=== PATIENT | female | born 1945 | race Caucasian/White ===

== ENCOUNTER 2017-06-14 17:30 | Inpatient (IN) | payer MEDICARE, MEDICAID ==
[2017-06-14] MEDS: SOD CHLORIDE 0.9% 1,000 ML IV (18:13)
[2017-06-14] MEDS: morphine 4 MG/ML VIAL IV (18:14)
[2017-06-14] MEDS: ONDANSETRON 4 MG INJ IV (18:14)
[2017-06-14 18:44] LABS: ADD MAN DIFF? NO
[2017-06-14 18:48] LABS: BASOPHILS % 0.4 % (0.0-2.0); EOSINOPHILS # 0.3 10^3/ul (0.0-0.5); EOSINOPHILS % 3.4 % (0.0-7.0); HEMATOCRIT 31.4 % (37.0-47.0); HEMOGLOBIN 10.3 g/dl (12.0-16.0); LYMPHOCYTES # 2.5 10^3/ul (0.8-2.9); MEAN CORPUSCULAR HEMOGLOBIN 29.3 pg (29.0-33.0); MEAN CORPUSCULAR HGB CONC 32.8 g/dl (32.0-37.0); MEAN CORPUSCULAR VOLUME 89.2 fl (82.0-101.0); MEAN PLATELET VOLUME 9.4 fl (7.4-10.4); MONOCYTE # 1.1 10^3/ul (0.3-0.9); MONOCYTES % 12.6 % (0.0-11.0); NEUTROPHIL # 4.9 10^3/ul (1.6-7.5); NEUTROPHILS % 55.3 % (39.0-77.0); PLATELET COUNT 423 10^3/UL (140-415); RED BLOOD COUNT 3.52 10^6/ul (4.20-5.40); RED CELL DISTRIBUTION WIDTH 15.7 % (11.5-14.5)
[2017-06-14 19:07] LABS: ANION GAP 14 (8-16); BLOOD UREA NITROGEN 14 mg/dl (7-20); CALCIUM 8.3 mg/dl (8.4-10.2); CARBON DIOXIDE 25 mmol/L (21-31); CHLORIDE 105 mmol/L (97-110); CREATININE 0.61 mg/dl (0.44-1.00); GLUCOSE 102 mg/dl (70-220); POTASSIUM 4.1 mmol/L (3.5-5.1); SODIUM 140 mmol/L (135-144)
[2017-06-14] MEDS: LORAZEPAM 2 MG INJ IV (19:08)
[2017-06-14] MEDS: HALOPERIDOL 5 MG INJ IM (19:09)
[2017-06-14 19:16] LABS: INR 0.92; PROTIME 12.4 Sec (11.9-14.9)
[2017-06-14 19:17] LABS: PARTIAL THROMBOPLASTIN TIME 27.6 Sec (25.0-35.0)
[2017-06-14 19:19] LABS: TROPONIN-I < 0.012 ng/ml (0.00-0.12)
[2017-06-14 21:31] LABS: ADD UMIC YES; UR ASCORBIC ACID NEGATIVE (NEGATIVE); UR BACTERIA FEW /HPF (NONE SEEN); UR BILIRUBIN (Dip) NEGATIVE (NEGATIVE); UR BLOOD (Dip) 1+ mg/dL (NEGATIVE); UR CLARITY SLIGHTLY CLOUDY (CLEAR); UR COLOR YELLOW (YELLOW); UR GLUCOSE (Dip) NEGATIVE (NEGATIVE); UR KETONES (Dip) NEGATIVE (NEGATIVE); UR LEUKOCYTE ESTERASE (Dip) 3+ Leu/ul (NEGATIVE); UR NITRITE (Dip) POSITIVE (NEGATIVE); UR RBC 1 /HPF (0-5); UR SPECIFIC GRAVITY (Dip) 1.006 (1.003-1.030); UR TOTAL PROTEIN (Dip) NEGATIVE (NEGATIVE); UR UROBILINOGEN (Dip) NEGATIVE (NEGATIVE); UR WBC 26 /HPF (0-5)
[2017-06-14] MEDS: CEFEPIME 1GM/50 ML (PMX) 50 ML IVPB (23:16)
[2017-06-15] MEDS ORDERED: ONDANSETRON 4 MG INJ IV (06:30)
[2017-06-15] MEDS: DEXTROSE 5%-0.45% NACL 1,000 ML IV ×2 (08:13→19:34)
[2017-06-15] MEDS ORDERED: DEXTROSE 50% 50 ML SYRINGE IV ×2 (08:30)
[2017-06-15] MEDS ORDERED: GLUCOSE GEL 15 GRAM TUBE PO ×2 (08:30)
[2017-06-15] MEDS ORDERED: GLUCOSE GEL 15 GRAM TUBE BUCCAL (08:30)
[2017-06-15] MEDS ORDERED: GLUCAGON 1 MG INJ IM (08:30)
[2017-06-15] MEDS: INSULIN ASPART [NOVOLOG] 3 ML PEN SC ×4 (09:47→23:29)
[2017-06-15] MEDS: CIPROFLOXACIN 400MG/D5W 200 ML IVPB ×2 (09:54→20:51)
[2017-06-15 15:12] LABS: ADD MAN DIFF? NO
[2017-06-15 15:14] LABS: WHITE BLOOD COUNT 8.5 10^3/ul (4.8-10.8)
[2017-06-15 15:14] LABS: BASOPHILS % 0.4 % (0.0-2.0); EOSINOPHILS # 0.2 10^3/ul (0.0-0.5); EOSINOPHILS % 2.7 % (0.0-7.0); HEMATOCRIT 30.9 % (37.0-47.0); LYMPHOCYTES % 22.9 % (15.0-51.0); MEAN CORPUSCULAR HEMOGLOBIN 29.1 pg (29.0-33.0); MEAN CORPUSCULAR HGB CONC 32.4 g/dl (32.0-37.0); MEAN CORPUSCULAR VOLUME 89.8 fl (82.0-101.0); MEAN PLATELET VOLUME 9.2 fl (7.4-10.4); MONOCYTE # 0.9 10^3/ul (0.3-0.9); NEUTROPHIL # 5.4 10^3/ul (1.6-7.5); NEUTROPHILS % 63.8 % (39.0-77.0); PLATELET COUNT 372 10^3/UL (140-415); RED BLOOD COUNT 3.44 10^6/ul (4.20-5.40); RED CELL DISTRIBUTION WIDTH 15.5 % (11.5-14.5)
[2017-06-15 15:36] LABS: ANION GAP 12 (8-16); BLOOD UREA NITROGEN 10 mg/dl (7-20); CALCIUM 8.4 mg/dl (8.4-10.2); CARBON DIOXIDE 26 mmol/L (21-31); CHLORIDE 106 mmol/L (97-110); CREATININE 0.56 mg/dl (0.44-1.00); GLUCOSE 129 mg/dl (70-220); POTASSIUM 4.2 mmol/L (3.5-5.1); SODIUM 140 mmol/L (135-144)
[2017-06-15 16:17] LABS: HEMOGLOBIN A1C 5.6 % (0-5.9)
[2017-06-15] MEDS ORDERED: ALBUTEROL 0.083% (NEB) 2.5 MG/3 ML AMP NEB (19:30)
[2017-06-15] MEDS: CHLORHEXIDINE GLUCONATE 15 ML UD CUP MM (20:06)
[2017-06-15] MEDS: DOCUSATE SODIUM 10 MG/ML (10ML CUP) GTB (20:06)
[2017-06-15] MEDS: MAGNESIUM HYDROXIDE 30ML CUP GTB (20:06)
[2017-06-15] MEDS: LANSOPRAZOLE 30 MG CAP GTB (20:06)
[2017-06-15] MEDS: FERROUS SULFATE 60 MG/ML 5ML CUP PO (20:06)
[2017-06-15] MEDS: ATORVASTATIN 40 MG TAB GTB (20:06)
[2017-06-15] MEDS: NYSTATIN 30 GM POWDER BTL TOP (20:07)
[2017-06-15] MEDS: BISACODYL 10 MG SUPP PR (20:07)
[2017-06-15] MEDS ORDERED: NON-FORMULARY/PATIENT OWN MED (Cran/Vitc/Mannose/Inulin/Brom (Uti-Stat Liquid) 30 ML) GTB (21:00)
[2017-06-15] MEDS: ALBUTEROL 0.083% (NEB) 2.5 MG/3 ML AMP NEB (21:32)
[2017-06-15] MEDS: LEVETIRACETAM (100 MG/ML) 5ML CUP GTB (22:55)
[2017-06-15] MEDS: ACETAMINOPHEN 650MG/20.3ML CUP GTB (23:30)
[2017-06-16] MEDS: ALBUTEROL 0.083% (NEB) 2.5 MG/3 ML AMP NEB ×4 (02:00→20:25)
[2017-06-16 05:39] LABS: ADD MAN DIFF? NO
[2017-06-16 05:42] LABS: BASOPHILS % 0.6 % (0.0-2.0); EOSINOPHILS # 0.4 10^3/ul (0.0-0.5); EOSINOPHILS % 5.4 % (0.0-7.0); HEMATOCRIT 30.3 % (37.0-47.0); HEMOGLOBIN 9.6 g/dl (12.0-16.0); LYMPHOCYTES # 1.9 10^3/ul (0.8-2.9); LYMPHOCYTES % 26.9 % (15.0-51.0); MEAN CORPUSCULAR HGB CONC 31.7 g/dl (32.0-37.0); MEAN CORPUSCULAR VOLUME 91.5 fl (82.0-101.0); MEAN PLATELET VOLUME 9.4 fl (7.4-10.4); MONOCYTE # 0.9 10^3/ul (0.3-0.9); MONOCYTES % 13.1 % (0.0-11.0); NEUTROPHIL # 3.8 10^3/ul (1.6-7.5); NEUTROPHILS % 53.9 % (39.0-77.0); PLATELET COUNT 359 10^3/UL (140-415); RED BLOOD COUNT 3.31 10^6/ul (4.20-5.40)
[2017-06-16 05:42] LABS: WHITE BLOOD COUNT 7.1 10^3/ul (4.8-10.8)
[2017-06-16] MEDS: LANSOPRAZOLE 30 MG CAP GTB ×2 (05:50→18:24)
[2017-06-16 05:55] LABS: HEMOGLOBIN A1C 5.6 % (0-5.9)
[2017-06-16] MEDS: INSULIN ASPART [NOVOLOG] 3 ML PEN SC ×3 (06:00→18:00)
[2017-06-16 06:07] LABS: MAGNESIUM 1.7 mg/dl (1.7-2.5)
[2017-06-16 06:15] LABS: ANION GAP 12 (8-16); BLOOD UREA NITROGEN 10 mg/dl (7-20); CALCIUM 8.2 mg/dl (8.4-10.2); CARBON DIOXIDE 26 mmol/L (21-31); CHLORIDE 102 mmol/L (97-110); CREATININE 0.55 mg/dl (0.44-1.00); GLUCOSE 152 mg/dl (70-220); POTASSIUM 4.4 mmol/L (3.5-5.1); SODIUM 136 mmol/L (135-144)
[2017-06-16] MEDS: DEXTROSE 5%-0.45% NACL 1,000 ML IV ×3 (06:33→20:14)
[2017-06-16 08:12] LABS: ALANINE AMINOTRANSFERASE 21 IU/L (13-69); ALKALINE PHOSPHATASE 196 IU/L (42-121); ASPARTATE AMINO TRANSFERASE 23 IU/L (15-46); TOTAL PROTEIN 6.4 g/dl (6.1-8.1)
[2017-06-16] MEDS: MAGNESIUM HYDROXIDE 30ML CUP GTB (09:58)
[2017-06-16] MEDS: NYSTATIN 30 GM POWDER BTL TOP ×2 (09:59→20:51)
[2017-06-16] MEDS: FERROUS SULFATE 60 MG/ML 5ML CUP PO ×3 (09:59→20:51)
[2017-06-16] MEDS: L ACIDOPHIL/B LACTIS/B LONGUM CAPSULE PO (09:59)
[2017-06-16] MEDS: CHLORHEXIDINE GLUCONATE 15 ML UD CUP MM ×2 (09:59→20:51)
[2017-06-16] MEDS: LEVETIRACETAM (100 MG/ML) 5ML CUP GTB ×2 (09:59→20:51)
[2017-06-16] MEDS: ASPIRIN 81 MG TAB GTB (09:59)
[2017-06-16] MEDS: MULTIVITAMINS/MINERALS TAB GTB (09:59)
[2017-06-16] MEDS: CIPROFLOXACIN 400MG/D5W 200 ML IVPB ×2 (10:49→20:53)
[2017-06-16] MEDS: BISACODYL 10 MG SUPP PR (20:16)
[2017-06-16] MEDS: DOCUSATE SODIUM 10 MG/ML (10ML CUP) GTB (20:51)
[2017-06-16] MEDS: ATORVASTATIN 40 MG TAB GTB (20:51)
[2017-06-16] MEDS: ACETAMINOPHEN 650MG/20.3ML CUP GTB (20:51)
[2017-06-17] MEDS: ACCUCHECK AT 2AM (Patients on SS coverage) XX (02:00)
[2017-06-17] MEDS: ALBUTEROL 0.083% (NEB) 2.5 MG/3 ML AMP NEB ×4 (02:15→20:14)
[2017-06-17] MEDS: LANSOPRAZOLE 30 MG CAP GTB ×2 (06:10→18:13)
[2017-06-17] MEDS: Insulin NOVOLOG SS MILD Algorithm (SS with meals and bedtime) SC ×4 (07:20→20:25)
[2017-06-17] MEDS ORDERED: INSULIN ASPART [NOVOLOG] 3 ML PEN SC (07:20)
[2017-06-17] MEDS: LEVETIRACETAM (100 MG/ML) 5ML CUP GTB ×2 (08:54→20:24)
[2017-06-17] MEDS: FERROUS SULFATE 60 MG/ML 5ML CUP PO ×3 (08:55→20:24)
[2017-06-17] MEDS: CHLORHEXIDINE GLUCONATE 15 ML UD CUP MM ×2 (08:55→20:24)
[2017-06-17] MEDS: MULTIVITAMINS/MINERALS TAB GTB (08:55)
[2017-06-17] MEDS: ASPIRIN 81 MG TAB GTB (08:55)
[2017-06-17] MEDS: L ACIDOPHIL/B LACTIS/B LONGUM CAPSULE PO (08:55)
[2017-06-17] MEDS: MAGNESIUM HYDROXIDE 30ML CUP GTB (08:55)
[2017-06-17] MEDS: DEXTROSE 5%-0.45% NACL 1,000 ML IV (08:58)
[2017-06-17] MEDS: NYSTATIN 30 GM POWDER BTL TOP ×2 (09:02→20:26)
[2017-06-17] MEDS: CIPROFLOXACIN 400MG/D5W 200 ML IVPB (09:03)
[2017-06-17] MEDS: morphine 2 MG INJ IV ×3 (10:13→22:11)
[2017-06-17] MEDS ORDERED: SOD CHLORIDE 0.9% 250 ML IV (16:00)
[2017-06-17] MEDS: SOD CHLORIDE 0.9% 1,000 ML IV ×2 (16:05→18:06)
[2017-06-17] MEDS: HALOPERIDOL 5 MG INJ IM (16:29)
[2017-06-17] MEDS: ATORVASTATIN 40 MG TAB GTB (20:24)
[2017-06-17] MEDS: DOCUSATE SODIUM 10 MG/ML (10ML CUP) GTB (20:24)
[2017-06-17] MEDS: BISACODYL 10 MG SUPP PR (20:24)
[2017-06-17] MEDS: HEPARIN 5,000 UNIT/0.5 ML VIAL SC (20:27)
[2017-06-18] MEDS: ALBUTEROL 0.083% (NEB) 2.5 MG/3 ML AMP NEB ×3 (01:35→14:03)
[2017-06-18] MEDS: ACCUCHECK AT 2AM (Patients on SS coverage) XX (02:00)
[2017-06-18] MEDS: LANSOPRAZOLE 30 MG CAP GTB (05:14)
[2017-06-18] MEDS: morphine 2 MG INJ IV (05:14)
[2017-06-18] MEDS: SOD CHLORIDE 0.9% 1,000 ML IV ×2 (05:14→10:02)
[2017-06-18] MEDS: CIPROFLOXACIN 250 MG TAB GTB ×2 (05:14→17:20)
[2017-06-18] MEDS: Insulin NOVOLOG SS MILD Algorithm (SS with meals and bedtime) SC ×3 (08:50→17:25)
[2017-06-18] MEDS: CHLORHEXIDINE GLUCONATE 15 ML UD CUP MM (08:56)
[2017-06-18] MEDS: L ACIDOPHIL/B LACTIS/B LONGUM CAPSULE PO (08:56)
[2017-06-18] MEDS: FERROUS SULFATE 60 MG/ML 5ML CUP PO ×2 (08:56→13:22)
[2017-06-18] MEDS: MAGNESIUM HYDROXIDE 30ML CUP GTB (08:56)
[2017-06-18] MEDS: LEVETIRACETAM (100 MG/ML) 5ML CUP GTB (08:56)
[2017-06-18] MEDS: MULTIVITAMINS/MINERALS TAB GTB (08:56)
[2017-06-18] MEDS: ASPIRIN 81 MG TAB GTB (08:56)
[2017-06-18] MEDS: HEPARIN 5,000 UNIT/0.5 ML VIAL SC (08:58)
[2017-06-18] MEDS: NYSTATIN 30 GM POWDER BTL TOP (08:59)
[2017-06-18] MEDS: HALOPERIDOL 5 MG INJ IM (10:03)
== END 2017-06-18 18:25 | DRG 542 ==
LOC: MS1 06-15 → E/R 17:30 → MS1 06-15 11:45
PROC: 5A1945Z Respiratory Ventilation, 24-96 Consecutive Hours (ICD-10-PCS; principal; 2017-06-15)
DX: M84.452A Pathological fracture, left femur, initial encounter for fracture (principal); G93.49 Other encephalopathy; J96.10 Chronic respiratory failure, unspecified whether with hypoxia or hypercapnia; N39.0 Urinary tract infection, site not specified; G40.909 Epilepsy, unspecified, not intractable, without status epilepticus; Z93.0 Tracheostomy status; E78.00 Pure hypercholesterolemia, unspecified; E11.22 Type 2 diabetes mellitus with diabetic chronic kidney disease; I12.9 Hypertensive chronic kidney disease with stage 1 through stage 4 chronic kidney disease, or unspecified chronic kidney disease; F03.90 Unspecified dementia, unspecified severity, without behavioral disturbance, psychotic disturbance, mood disturbance, and anxiety; Z93.1 Gastrostomy status; D64.9 Anemia, unspecified; R13.10 Dysphagia, unspecified; N18.9 Chronic kidney disease, unspecified; Z79.82 Long term (current) use of aspirin; Z87.11 Personal history of peptic ulcer disease; Z88.0 Allergy status to penicillin
CPT/HCPCS: 36415; 71045; 72170; 73550; 73562; 80048; 80076; 81001; 82962; 83036; 83735; 84484; 85025; 85610; 85730; 87086; 93005; 94640; 94664; 96372; 96374; 96375; 99285-25

== ENCOUNTER 2017-07-21 19:46 | Inpatient (IN) | payer MEDICARE, OTHER, MEDICAID ==
[~2017-07-21 19:46] MED LIST: AMIODARONE 150 MG INJ; CA CHLORIDE 10% 10 ML SYRINGE; EPINEPHrine 0.1 MG/ML SYG; MAGNESIUM SULFATE 1 GM/100 ML D5W IVPB; NA BICARBONATE 8.4% 50 ML SYG
[2017-07-21] MEDS ORDERED: NORepinephrine 8MG/250 ML (PMX 250 ML (20:16)
[2017-07-21] MEDS: AMIODARONE 900 MG in DEXTROSE 5% 482 ML IV (20:20)
[2017-07-21] MEDS: NORepinephrine 8MG/250 ML (PMX 250 ML IV (20:25)
[2017-07-21] MEDS: SODIUM CHLORIDE 0.9% 1L BAG IV* (20:25)
[2017-07-21 21:10] LABS: AADO2 Arterial 423.3 mmHg (7.0-24.0); Allen Test ACCEPTAB; Arterial Base Excess -8.8 mmol/L (-3.0-3); Arterial Blood Gas Oxygen Sat 99.6 mmHG (95.0-98.0); Arterial COHb 0.8 % (0.0-3.0); Arterial Fraction of Oxyhgb 98.6 % (93.0-99.0); Arterial HCO3 18.5 mmol/L (22.0-26.0); Arterial MetHb 0.2 % (0.0-1.5); Arterial Total Hemglobin 13.8 g/dl (12.0-18.0); MODE VENT - AC; Site Right Radial
[2017-07-21 21:11] LABS: WHITE BLOOD COUNT 19.2 10^3/ul (4.8-10.8)
[2017-07-21 21:11] LABS: ABNORMAL IP MESSAGE 1; HEMATOCRIT 39.1 % (37.0-47.0); HEMOGLOBIN 11.8 g/dl (12.0-16.0); MEAN CORPUSCULAR HEMOGLOBIN 28.8 pg (29.0-33.0); MEAN CORPUSCULAR HGB CONC 30.2 g/dl (32.0-37.0); MEAN CORPUSCULAR VOLUME 95.4 fl (82.0-101.0); MEAN PLATELET VOLUME 10.3 fl (7.4-10.4); NUCLEATED RED BLOOD CELLS% 0.2 /100WBC (0.0-0.0); PLATELET COUNT 258 10^3/UL (140-415); RED CELL DISTRIBUTION WIDTH 15.9 % (11.5-14.5)
[2017-07-21 21:16] LABS: POSITIVE DIFF @See below
[2017-07-21] MEDS: SODIUM CHLORIDE 0.9% 500 ML BAG IV* (21:16)
[2017-07-21 21:17] LABS: ADD MAN DIFF? YES
[2017-07-21] MEDS: CEFEPIME 1GM/50 ML (PMX) 50 ML IVPB (21:27)
[2017-07-21 21:36] LABS: ALANINE AMINOTRANSFERASE 282 IU/L (13-69); ALBUMIN 2.5 g/dl (3.3-4.9); ALKALINE PHOSPHATASE 221 IU/L (42-121); ANION GAP 15 (8-16); ASPARTATE AMINO TRANSFERASE 404 IU/L (15-46); BLOOD UREA NITROGEN 21 mg/dl (7-20); CALCIUM 9.2 mg/dl (8.4-10.2); CARBON DIOXIDE 25 mmol/L (21-31); CHLORIDE 106 mmol/L (97-110); CREATININE 0.98 mg/dl (0.44-1.00); GLUCOSE 208 mg/dl (70-220); MAGNESIUM 2.5 mg/dl (1.7-2.5); PHOSPHORUS 7.6 mg/dl (2.5-4.9); POTASSIUM 4.4 mmol/L (3.5-5.1); SODIUM 142 mmol/L (135-144); TOTAL PROTEIN 5.6 g/dl (6.1-8.1)
[2017-07-21] MEDS ORDERED: LEVETIRACETAM (100 MG/ML) 5ML CUP GTB (22:00)
[2017-07-21] MEDS ORDERED: ACETAMINOPHEN 325 MG TAB PO (22:00)
[2017-07-21] MEDS ORDERED: ONDANSETRON 4 MG INJ IV ×2 (22:00)
[2017-07-21] MEDS ORDERED: ACETAMINOPHEN 325 MG TAB GTB (22:00)
[2017-07-21] MEDS: CHLORHEXIDINE GLUCONATE 15 ML UD CUP MM (22:00)
[2017-07-21] MEDS: LANSOPRAZOLE 30 MG CAP GTB (22:00)
[2017-07-21] MEDS ORDERED: ALBUTEROL 0.083% (NEB) 2.5 MG/3 ML AMP NEB (22:00)
[2017-07-21] MEDS: MAGNESIUM HYDROXIDE 30ML CUP GTB (22:00)
[2017-07-21] MEDS ORDERED: FENTAnyl (DRIP) 1000 mcg/100mL 100 ML IV (22:00)
[2017-07-21 22:05] LABS: BAND NEUTROPHILS #M 0.1 10^3/ul (0.0-0.6); BAND NEUTROPHILS % (M) 1 % (0-4); BASOPHIL #M 0.1 10^3/ul (0.0-0.0); BASOPHILS % (M) 1 % (0-2); EOSINOPHILS % (M) 1 % (0-7); GIANT THROMBO% (M) 1 % (0-0); LYMPHOCYTES #M 2.4 10^3/ul (0.8-2.9); LYMPHOCYTES % (M) 13 % (15-51); MONOCYTE #M 0.5 10^3/ul (0.3-0.9); MONOCYTES % (M) 3 % (0-11); MYELOCYTES #M 0.3 10^3/ul (0.0-0.0); MYELOCYTES % (M) 2 % (0-0); PLATELET ESTIMATE NORMAL; POIKILOCYTOSIS 1+ (0-0); POLYCHROMASIA 2+ (0-0); SEG NEUT #M 15.2 10^3/ul (1.6-7.5); SEGMENTED NEUTROPHILS (M) % 79 % (39-77); TROPONIN-I 0.165 ng/ml (0.00-0.12)
[2017-07-21 22:07] LABS: LACTIC ACID 9.2 mmol/L (0.5-2.0)
[2017-07-21] MEDS: VANCOMYCIN 1 GM (PMX) 250 ML IVPB (22:19)
[2017-07-21 22:23] LABS: CREATINE KINASE 80 IU/L (23-200); LIPASE 42 U/L (23-300)
[2017-07-21 22:23] LABS: AMYLASE 60 U/L (11-123)
[2017-07-21] MEDS ORDERED: VANCOMYCIN IV PER PHARMACY XX (22:30)
[2017-07-21 22:33] LABS: CK-MB 2.36 ng/ml (0.0-2.4)
[2017-07-21 22:41] LABS: ADD UMIC YES; UR AMORPHOUS CRYSTAL FEW /HPF (NONE SEEN); UR ASCORBIC ACID 40 mg/dL (NEGATIVE); UR BACTERIA MODERATE /HPF (NONE SEEN); UR BILIRUBIN (Dip) NEGATIVE (NEGATIVE); UR BLOOD (Dip) 1+ mg/dL (NEGATIVE); UR CLARITY TURBID (CLEAR); UR COLOR YELLOW (YELLOW); UR GLUCOSE (Dip) NEGATIVE (NEGATIVE); UR KETONES (Dip) NEGATIVE (NEGATIVE); UR LEUKOCYTE ESTERASE (Dip) 1+ Leu/ul (NEGATIVE); UR NITRITE (Dip) NEGATIVE (NEGATIVE); UR RBC 46 /HPF (0-5); UR SPECIFIC GRAVITY (Dip) 1.012 (1.003-1.030); UR SQUAMOUS EPITHELIAL CELL FEW /HPF (FEW); UR TOTAL PROTEIN (Dip) 2+ mg/dl (NEGATIVE); UR UROBILINOGEN (Dip) NEGATIVE (NEGATIVE); UR WBC > 182 /HPF (0-5)
[2017-07-21] MEDS: MIDAZOLAM (DRIP) 50 mg/50 mL 50 ML IV (23:10)
[2017-07-21] MEDS: VECURONIUM 100 MG in DEXTROSE 5% 100 ML IV (23:17)
[2017-07-21 23:26] LABS: INR 1.41; PROTIME 17.5 Sec (11.9-14.9); PT RATIO 1.4
[2017-07-21 23:27] LABS: PARTIAL THROMBOPLASTIN TIME 51.3 Sec (25.0-35.0)
[2017-07-22 00:01] LABS: D-DIMER < 220.00 ng/ml (<460)
[2017-07-22 01:05] LABS: LACTIC ACID 7.6 mmol/L (0.5-2.0)
[2017-07-22 01:55] LABS: ADD MAN DIFF? NO
[2017-07-22 01:58] LABS: ABNORMAL IP MESSAGE 1; BASOPHIL # 0.2 10^3/ul (0.0-0.1); BASOPHILS % 0.4 % (0.0-2.0); HEMOGLOBIN 15.3 g/dl (12.0-16.0); LYMPHOCYTES # 1.9 10^3/ul (0.8-2.9); LYMPHOCYTES % 4.2 % (15.0-51.0); MEAN CORPUSCULAR HEMOGLOBIN 28.9 pg (29.0-33.0); MEAN CORPUSCULAR VOLUME 96.4 fl (82.0-101.0); MEAN PLATELET VOLUME 9.7 fl (7.4-10.4); MONOCYTE # 1.5 10^3/ul (0.3-0.9); MONOCYTES % 3.3 % (0.0-11.0); NEUTROPHIL # 40.6 10^3/ul (1.6-7.5); NEUTROPHILS % 91.2 % (39.0-77.0); PLATELET COUNT 256 10^3/UL (140-415); RED BLOOD COUNT 5.29 10^6/ul (4.20-5.40)
[2017-07-22 01:58] LABS: WHITE BLOOD COUNT 44.5 10^3/ul (4.8-10.8)
[2017-07-22] MEDS: SOD CHLORIDE 0.9% 1,000 ML IV (01:59)
[2017-07-22] MEDS ORDERED: DEXTROSE 50% 50 ML SYRINGE IV ×2 (02:00)
[2017-07-22 02:06] LABS: POSITIVE DIFF @See below
[2017-07-22] MEDS: ACCU-CHEK XX ×23 (02:15→23:58)
[2017-07-22 02:18] LABS: PARTIAL THROMBOPLASTIN TIME 42.1 Sec (25.0-35.0)
[2017-07-22 02:24] LABS: AADO2 Arterial 258.5 mmHg (7.0-24.0); Arterial Base Excess -14.8 mmol/L (-3.0-3); Arterial Blood Gas Oxygen Sat 87.6 mmHG (95.0-98.0); Arterial COHb 1.4 % (0.0-3.0); Arterial Fraction of Oxyhgb 86.4 % (93.0-99.0); Arterial HCO3 14.7 mmol/L (22.0-26.0); Arterial MetHb 0 % (0.0-1.5); Arterial Total Hemglobin 16.2 g/dl (12.0-18.0); Arterial pCO2 42.8 mmhg (35-45); MODE VENT - AC; Site Right Brachial; Temperature 34.5 C
[2017-07-22 02:26] LABS: CREATINE KINASE 255 IU/L (23-200)
[2017-07-22 02:28] LABS: AMYLASE 113 U/L (11-123); ANION GAP 19 (8-16); BLOOD UREA NITROGEN 26 mg/dl (7-20); CALCIUM 8.5 mg/dl (8.4-10.2); CARBON DIOXIDE 20 mmol/L (21-31); CHLORIDE 109 mmol/L (97-110); CREATININE 1.13 mg/dl (0.44-1.00); GLUCOSE 169 mg/dl (70-220); LIPASE 76 U/L (23-300); MAGNESIUM 2.3 mg/dl (1.7-2.5); PHOSPHORUS 7.2 mg/dl (2.5-4.9); POTASSIUM 4.1 mmol/L (3.5-5.1); SODIUM 144 mmol/L (135-144)
[2017-07-22] MEDS ORDERED: NA BICARBONATE 8.4% 50 ML SYG (02:39)
[2017-07-22] MEDS: NA BICARBONATE 8.4% 50 ML SYG IV ×2 (02:53→09:04)
[2017-07-22 03:00] LABS: TROPONIN-I 0.984 ng/ml (0.00-0.12)
[2017-07-22] MEDS: INSULIN HUMAN REGULAR 100 UNIT in SOD CHLORIDE 0.9% 99 ML IV (03:19)
[2017-07-22 05:10] LABS: LACTIC ACID 8.2 mmol/L (0.5-2.0)
[2017-07-22] MEDS: PANTOPRAZOLE 40 MG INJ IV ×2 (05:42→18:19)
[2017-07-22] MEDS: ARTIFICIAL TEARS 15 ML OPH BOTH EYES ×5 (06:37→23:58)
[2017-07-22] MEDS: OCULAR LUBRICANT 3.5 GM OPH OINT BOTH EYES ×5 (06:37→23:58)
[2017-07-22 07:55] LABS: HEMATOCRIT 52.7 % (37.0-47.0); HEMOGLOBIN 15.7 g/dl (12.0-16.0); MEAN CORPUSCULAR HEMOGLOBIN 28.6 pg (29.0-33.0); MEAN CORPUSCULAR HGB CONC 29.8 g/dl (32.0-37.0); MEAN PLATELET VOLUME 10.4 fl (7.4-10.4); PLATELET COUNT 223 10^3/UL (140-415); RED BLOOD COUNT 5.49 10^6/ul (4.20-5.40); RED CELL DISTRIBUTION WIDTH 16.5 % (11.5-14.5)
[2017-07-22 07:55] LABS: WHITE BLOOD COUNT 42.5 10^3/ul (4.8-10.8)
[2017-07-22 07:56] LABS: ABNORMAL IP MESSAGE 1
[2017-07-22 07:59] LABS: ADD MAN DIFF? YES; POSITIVE DIFF @See below
[2017-07-22 08:11] LABS: LACTIC ACID 9.2 mmol/L (0.5-2.0)
[2017-07-22 08:21] LABS: PARTIAL THROMBOPLASTIN TIME 41.9 Sec (25.0-35.0)
[2017-07-22 08:22] LABS: AMYLASE 87 U/L (11-123); LIPASE 63 U/L (23-300); MAGNESIUM 2.2 mg/dl (1.7-2.5); PHOSPHORUS 6.4 mg/dl (2.5-4.9)
[2017-07-22 08:22] LABS: CALCIUM 8.3 mg/dl (8.4-10.2)
[2017-07-22 08:24] LABS: CREATINE KINASE 309 IU/L (23-200)
[2017-07-22 08:36] LABS: BURR CELLS 1+ (0-0); GIANT THROMBO% (M) 2 % (0-0); METAMYELOCYTES #M 0.8 10^3/ul (0.0-0.0); METAMYELOCYTES %M 2 % (0-0); OVALOCYTES 1+ (0-0); PLATELET ESTIMATE NORMAL; PLATELET MORPHOLOGY COMMENT @See below; POIKILOCYTOSIS 1+ (0-0)
[2017-07-22] MEDS: SODIUM CHLORIDE 0.9% 1L BAG IV* (08:56)
[2017-07-22 08:57] LABS: AADO2 Arterial 581.2 mmHg (7.0-24.0); Allen Test ACCEPTAB; Arterial Base Excess -14.1 mmol/L (-3.0-3); Arterial Blood Gas Oxygen Sat 98.2 mmHG (95.0-98.0); Arterial COHb 1.2 % (0.0-3.0); Arterial HCO3 13.8 mmol/L (22.0-26.0); Arterial MetHb 0 % (0.0-1.5); Arterial Total Hemglobin 16.6 g/dl (12.0-18.0); Arterial pCO2 34.3 mmhg (35-45); MODE VENT - AC; Site Right Brachial; Temperature 34.2 C
[2017-07-22] MEDS: CEFEPIME 1GM/50 ML (PMX) 50 ML IVPB ×2 (08:57→20:17)
[2017-07-22] MEDS: FERROUS SULFATE 60 MG/ML 5ML CUP GTB ×3 (09:00→20:13)
[2017-07-22] MEDS: LACTOBACILLUS RHAMNOSUS CAP GTB (09:00)
[2017-07-22] MEDS: ASPIRIN 81 MG TAB GTB ×2 (09:00→15:01)
[2017-07-22] MEDS ORDERED: PHENYLephrine 40 MG in DEXTROSE 5% 496 ML IV (09:00)
[2017-07-22] MEDS: MULTIVITAMINS 30 ML CUP GTB (09:00)
[2017-07-22] MEDS: LEVETIRACETAM 500 MG (PMX) 100 ML IVPB ×2 (09:37→20:14)
[2017-07-22 09:39] LABS: CK INDEX 5.5
[2017-07-22] MEDS: SODIUM BICARBONATE (IV ADD) 100 MEQ in SOD CHLORIDE 0.9% 1,000 ML IV ×2 (10:00→20:14)
[2017-07-22 10:11] LABS: B-TYPE NATRIURETIC PEPTIDE 8790 PG/ML (0-125)
[2017-07-22] MEDS: CHLORHEXIDINE GLUCONATE 15 ML UD CUP MM ×2 (10:53→21:15)
[2017-07-22] MEDS: MIDAZOLAM (DRIP) 50 mg/50 mL 50 ML IV (11:23)
[2017-07-22 14:13] LABS: AADO2 Arterial 411.7 mmHg (7.0-24.0); Allen Test ACCEPTAB; Arterial Blood Gas Oxygen Sat 99.2 mmHG (95.0-98.0); Arterial COHb 1.1 % (0.0-3.0); Arterial HCO3 17.6 mmol/L (22.0-26.0); Arterial MetHb 0.1 % (0.0-1.5); Arterial Total Hemglobin 15.9 g/dl (12.0-18.0); Arterial pCO2 29.9 mmhg (35-45); MODE VENT - AC; Site Right Radial; Temperature 34.3 C
[2017-07-22 14:30] LABS: LACTIC ACID 7.1 mmol/L (0.5-2.0)
[2017-07-22] MEDS: LACTATED RINGER'S 1,000 ML IV (14:54)
[2017-07-22 15:36] LABS: WHITE BLOOD COUNT 32.4 10^3/ul (4.8-10.8)
[2017-07-22 15:36] LABS: ABNORMAL IP MESSAGE 1; HEMOGLOBIN 13.4 g/dl (12.0-16.0); MEAN CORPUSCULAR HGB CONC 31.2 g/dl (32.0-37.0); MEAN CORPUSCULAR VOLUME 93.1 fl (82.0-101.0); MEAN PLATELET VOLUME 11.1 fl (7.4-10.4); RED BLOOD COUNT 4.62 10^6/ul (4.20-5.40); RED CELL DISTRIBUTION WIDTH 16.4 % (11.5-14.5)
[2017-07-22 15:39] LABS: PLATELET COUNT 134 10^3/UL (140-415); POSITIVE DIFF @See below
[2017-07-22 15:40] LABS: ADD MAN DIFF? YES
[2017-07-22 15:56] LABS: INR 1.44; PROTIME 17.8 Sec (11.9-14.9); PT RATIO 1.4
[2017-07-22 15:57] LABS: PARTIAL THROMBOPLASTIN TIME 38.4 Sec (25.0-35.0)
[2017-07-22 16:01] LABS: ALANINE AMINOTRANSFERASE 176 IU/L (13-69); ALBUMIN/GLOBULIN RATIO 0.68; ALKALINE PHOSPHATASE 165 IU/L (42-121); AMYLASE 65 U/L (11-123); ANION GAP 15 (8-16); ASPARTATE AMINO TRANSFERASE 265 IU/L (15-46); BILIRUBIN,INDIRECT 0.1 mg/dl (0-1.1); BILIRUBIN,TOTAL 0.1 mg/dl (0.2-1.3); BLOOD UREA NITROGEN 34 mg/dl (7-20); CALCIUM 7.4 mg/dl (8.4-10.2); CARBON DIOXIDE 21 mmol/L (21-31); CHLORIDE 110 mmol/L (97-110); CREATININE 1.17 mg/dl (0.44-1.00); GLUCOSE 181 mg/dl (70-220); LIPASE 25 U/L (23-300); MAGNESIUM 1.8 mg/dl (1.7-2.5); PHOSPHORUS 4.8 mg/dl (2.5-4.9); SODIUM 143 mmol/L (135-144); TOTAL PROTEIN 4.9 g/dl (6.1-8.1)
[2017-07-22 16:34] LABS: BAND NEUTROPHILS #M 6.1 10^3/ul (0.0-0.6); BAND NEUTROPHILS % (M) 19 % (0-4); LYMPHOCYTES # 1.3 10^3/ul (0.8-2.9); LYMPHOCYTES #M 1.2 10^3/ul (0.8-2.9); LYMPHOCYTES % (M) 4 % (15-51); MONOCYTE # 0.3 10^3/ul (0.3-0.9); MONOCYTE #M 0.3 10^3/ul (0.3-0.9); MONOCYTES % (M) 1 % (0-11); SEG NEUT #M 26.6 10^3/ul (1.7-7.5); SEGMENTED NEUTROPHILS (M) % 76 % (39-77)
[2017-07-22] MEDS: POTASSIUM CHLORIDE 50 ML IVPB ×2 (17:19→18:19)
[2017-07-22] MEDS: MAGNESIUM SULFATE 2 GM/50 ML 50 ML IVPB (17:34)
[2017-07-22] MEDS ORDERED: MAGNESIUM SULFATE 2 GM/50 ML 50 ML IVPB (18:00)
[2017-07-22] MEDS ORDERED: MAGNESIUM SULFATE 4 GM/100 ML 100 ML IVPB (18:00)
[2017-07-22 18:45] LABS: WHITE BLOOD COUNT 30.2 10^3/ul (4.8-10.8)
[2017-07-22 18:45] LABS: ABNORMAL IP MESSAGE 1; HEMATOCRIT 44.2 % (37.0-47.0); HEMOGLOBIN 13.8 g/dl (12.0-16.0); MEAN CORPUSCULAR HEMOGLOBIN 28.8 pg (29.0-33.0); MEAN CORPUSCULAR HGB CONC 31.2 g/dl (32.0-37.0); MEAN CORPUSCULAR VOLUME 92.1 fl (82.0-101.0); MEAN PLATELET VOLUME 10.9 fl (7.4-10.4); RED CELL DISTRIBUTION WIDTH 16.3 % (11.5-14.5)
[2017-07-22 18:53] LABS: ADD MAN DIFF? YES; POSITIVE DIFF @See below
[2017-07-22 19:03] LABS: ALANINE AMINOTRANSFERASE 186 IU/L (13-69); ALBUMIN 1.8 g/dl (3.3-4.9); ALBUMIN/GLOBULIN RATIO 0.64; ALKALINE PHOSPHATASE 161 IU/L (42-121); AMYLASE 55 U/L (11-123); ANION GAP 14 (8-16); ASPARTATE AMINO TRANSFERASE 249 IU/L (15-46); BILIRUBIN,INDIRECT 0.1 mg/dl (0-1.1); BILIRUBIN,TOTAL 0.1 mg/dl (0.2-1.3); BLOOD UREA NITROGEN 37 mg/dl (7-20); CALCIUM 7.5 mg/dl (8.4-10.2); CARBON DIOXIDE 23 mmol/L (21-31); CHLORIDE 112 mmol/L (97-110); CREATININE 1.15 mg/dl (0.44-1.00); GLUCOSE 160 mg/dl (70-220); LIPASE 28 U/L (23-300); MAGNESIUM 2.4 mg/dl (1.7-2.5); PHOSPHORUS 4.3 mg/dl (2.5-4.9); POTASSIUM 3.8 mmol/L (3.5-5.1); SODIUM 145 mmol/L (135-144); TOTAL PROTEIN 4.6 g/dl (6.1-8.1)
[2017-07-22 19:05] LABS: INR 1.34; PROTIME 16.8 Sec (11.9-14.9); PT RATIO 1.3
[2017-07-22 19:06] LABS: PARTIAL THROMBOPLASTIN TIME 37.7 Sec (25.0-35.0)
[2017-07-22 19:44] LABS: Allen Test ACCEPTAB; Arterial MetHb 0.3 % (0.0-1.5); Arterial Total Hemglobin 14.9 g/dl (12.0-18.0); BAND NEUTROPHILS #M 11.1 10^3/ul (0.0-0.6); BAND NEUTROPHILS % (M) 37 % (0-4); LYMPHOCYTES # 4.2 10^3/ul (0.8-2.9); LYMPHOCYTES #M 4.2 10^3/ul (0.8-2.9); LYMPHOCYTES % (M) 14 % (15-51); MODE VENT - AC; MONOCYTE # 0.3 10^3/ul (0.3-0.9); MONOCYTE #M 0.3 10^3/ul (0.3-0.9); MONOCYTES % (M) 1 % (0-11); REACTIVE LYMPHOCYTES #M 0.3 10^3/ul (0.0-0.0); REACTIVE LYMPHOCYTES% (M) 1 % (0-0); SEG NEUT #M 17.5 10^3/ul (1.7-7.5); SEGMENTED NEUTROPHILS (M) % 47 % (39-77); Site Right Radial
[2017-07-22 19:45] LABS: PLATELET COUNT 121 10^3/UL (140-415)
[2017-07-22 19:48] LABS: LACTIC ACID 6.7 mmol/L (0.5-2.0)
[2017-07-22 20:03] LABS: AADO2 Arterial 193.7 mmHg (7.0-24.0); Arterial Blood Gas Oxygen Sat 95.4 mmHG (95.0-98.0); Arterial COHb 1.4 % (0.0-3.0); Arterial Fraction of Oxyhgb 93.8 % (93.0-99.0); Arterial pCO2 29.2 mmhg (35-45); Temperature 33.6 C
[2017-07-22] MEDS: ATORVASTATIN 40 MG TAB GTB (20:13)
[2017-07-22] MEDS: BALSAM PERU/CASTOR OIL 60 GM TUBE TOP (21:12)
[2017-07-22] MEDS: VANCOMYCIN 500MG/NS (PMX) 100 ML IVPB (21:12)
[2017-07-22] MEDS: MAGNESIUM HYDROXIDE 30ML CUP GTB (21:15)
[2017-07-22] MEDS ORDERED: VANCOMYCIN 750 MG in DEXTROSE 5% 150 ML IVPB (22:00)
[2017-07-22 23:23] LABS: BAND NEUTROPHILS % (M) 26 % (0-4); LYMPHOCYTES #M 1.2 10^3/ul (0.8-2.9); LYMPHOCYTES % (M) 3 % (15-51); MONOCYTE #M 2.1 10^3/ul (0.3-0.9); MONOCYTES % (M) 5 % (0-11); REACTIVE LYMPHOCYTES #M 0.4 10^3/ul (0.0-0.0); REACTIVE LYMPHOCYTES% (M) 1 % (0-0); SEG NEUT #M 32.3 10^3/ul (1.6-7.5); SEGMENTED NEUTROPHILS (M) % 65 % (39-77); SMUDGE%M 1 % (0-0)
[2017-07-22] MEDS ORDERED: FENTAnyl (DRIP) 1000 mcg/100mL 100 ML IV (23:30)
[2017-07-23 00:40] LABS: WHITE BLOOD COUNT 34.9 10^3/ul (4.8-10.8)
[2017-07-23 00:40] LABS: ABNORMAL IP MESSAGE 1; HEMATOCRIT 43.4 % (37.0-47.0); HEMOGLOBIN 13.9 g/dl (12.0-16.0); MEAN CORPUSCULAR VOLUME 90.4 fl (82.0-101.0); MEAN PLATELET VOLUME 12.1 fl (7.4-10.4); PLATELET COUNT 122 10^3/UL (140-415); RED CELL DISTRIBUTION WIDTH 16.2 % (11.5-14.5)
[2017-07-23 00:58] LABS: INR 1.34; PROTIME 16.8 Sec (11.9-14.9); PT RATIO 1.3
[2017-07-23 00:59] LABS: ADD MAN DIFF? YES; PARTIAL THROMBOPLASTIN TIME 37.9 Sec (25.0-35.0); POSITIVE DIFF @See below
[2017-07-23 01:11] LABS: ALANINE AMINOTRANSFERASE 182 IU/L (13-69); ALBUMIN 2.1 g/dl (3.3-4.9); ALKALINE PHOSPHATASE 171 IU/L (42-121); AMYLASE 59 U/L (11-123); ANION GAP 14 (8-16); ASPARTATE AMINO TRANSFERASE 210 IU/L (15-46); BLOOD UREA NITROGEN 40 mg/dl (7-20); CALCIUM 7.3 mg/dl (8.4-10.2); CARBON DIOXIDE 23 mmol/L (21-31); CHLORIDE 113 mmol/L (97-110); CREATININE 1.25 mg/dl (0.44-1.00); GLUCOSE 148 mg/dl (70-220); LIPASE 16 U/L (23-300); MAGNESIUM 2.5 mg/dl (1.7-2.5); PHOSPHORUS 4.3 mg/dl (2.5-4.9); POTASSIUM 3.7 mmol/L (3.5-5.1); SODIUM 146 mmol/L (135-144); TOTAL PROTEIN 5.1 g/dl (6.1-8.1)
[2017-07-23] MEDS: ACCU-CHEK XX ×23 (01:14→23:25)
[2017-07-23] MEDS: SOD CHLORIDE 0.9% 1,000 ML IV (01:19)
[2017-07-23 01:20] LABS: AADO2 Arterial 265.3 mmHg (7.0-24.0); Arterial Base Excess -6.2 mmol/L (-3.0-3); Arterial Blood Gas Oxygen Sat 95.5 mmHG (95.0-98.0); Arterial COHb 1.1 % (0.0-3.0); Arterial Fraction of Oxyhgb 94.2 % (93.0-99.0); Arterial HCO3 18.6 mmol/L (22.0-26.0); Arterial MetHb 0.3 % (0.0-1.5); Arterial Total Hemglobin 14.9 g/dl (12.0-18.0); MODE VENT - AC; Site Right Brachial; Temperature 33.4 C
[2017-07-23 01:26] LABS: TROPONIN-I 0.919 ng/ml (0.00-0.12)
[2017-07-23 01:29] LABS: LACTIC ACID 5.6 mmol/L (0.5-2.0)
[2017-07-23] MEDS ORDERED: SOD CHLORIDE 0.9% 500 ML IV (01:30)
[2017-07-23 01:52] LABS: ANISOCYTOSIS 1+ (0-0); BAND NEUTROPHILS #M 6.9 10^3/ul (0.0-0.6); BAND NEUTROPHILS % (M) 20 % (0-4); BURR CELLS 1+ (0-0); GIANT THROMBO% (M) 4 % (0-0); LYMPHOCYTES #M 2.4 10^3/ul (0.8-2.9); LYMPHOCYTES % (M) 7 % (15-51); METAMYELOCYTES #M 0.6 10^3/ul (0.0-0.0); METAMYELOCYTES %M 2 % (0-0); MONOCYTES % (M) 3 % (0-11); OVALOCYTES 1+ (0-0); PLATELET ESTIMATE DECREASED; PLATELET MORPHOLOGY COMMENT @See below; POIKILOCYTOSIS 1+ (0-0); SEG NEUT #M 26.1 10^3/ul (1.6-7.5); SEGMENTED NEUTROPHILS (M) % 68 % (39-77); SMUDGE%M 5 % (0-0)
[2017-07-23] MEDS: ACETAMINOPHEN 650MG/20.3ML CUP NGT ×4 (03:17→21:00)
[2017-07-23] MEDS: VECURONIUM 100 MG in DEXTROSE 5% 100 ML IV (03:35)
[2017-07-23] MEDS: MIDAZOLAM (DRIP) 50 mg/50 mL 50 ML IV (03:36)
[2017-07-23 05:25] LABS: Arterial MetHb 0.3 % (0.0-1.5); MODE VENT - AC; Site Right Brachial
[2017-07-23] MEDS: OCULAR LUBRICANT 3.5 GM OPH OINT BOTH EYES ×3 (05:29→18:20)
[2017-07-23] MEDS: PANTOPRAZOLE 40 MG INJ IV ×2 (05:29→18:19)
[2017-07-23] MEDS: ARTIFICIAL TEARS 15 ML OPH BOTH EYES ×3 (05:29→18:20)
[2017-07-23 06:20] LABS: AADO2 Arterial 437.1 mmHg (7.0-24.0); Arterial Base Excess -4.1 mmol/L (-3.0-3); Arterial Blood Gas Oxygen Sat 97.9 mmHG (95.0-98.0); Arterial COHb 1.1 % (0.0-3.0); Arterial Fraction of Oxyhgb 96.5 % (93.0-99.0); Arterial HCO3 18.6 mmol/L (22.0-26.0); Arterial Total Hemglobin 13.9 g/dl (12.0-18.0); Arterial pCO2 24.4 mmhg (35-45); Temperature 33.9 C
[2017-07-23 06:34] LABS: ABNORMAL IP MESSAGE 1; HEMATOCRIT 41.3 % (37.0-47.0); HEMOGLOBIN 13.2 g/dl (12.0-16.0); MEAN CORPUSCULAR HEMOGLOBIN 28.8 pg (29.0-33.0); MEAN CORPUSCULAR VOLUME 90.2 fl (82.0-101.0); MEAN PLATELET VOLUME 11.6 fl (7.4-10.4); PLATELET COUNT 106 10^3/UL (140-415); RED BLOOD COUNT 4.58 10^6/ul (4.20-5.40); RED CELL DISTRIBUTION WIDTH 16.4 % (11.5-14.5)
[2017-07-23 06:34] LABS: WHITE BLOOD COUNT 31.6 10^3/ul (4.8-10.8)
[2017-07-23 06:43] LABS: ADD MAN DIFF? YES; POSITIVE DIFF @See below
[2017-07-23 07:07] LABS: INR 1.39; PARTIAL THROMBOPLASTIN TIME 40.3 Sec (25.0-35.0); PROTIME 17.3 Sec (11.9-14.9); PT RATIO 1.4
[2017-07-23 07:13] LABS: ALANINE AMINOTRANSFERASE 159 IU/L (13-69); ALBUMIN 1.9 g/dl (3.3-4.9); ALKALINE PHOSPHATASE 153 IU/L (42-121); AMYLASE 37 U/L (11-123); ANION GAP 18 (8-16); ASPARTATE AMINO TRANSFERASE 180 IU/L (15-46); BLOOD UREA NITROGEN 41 mg/dl (7-20); CALCIUM 6.9 mg/dl (8.4-10.2); CARBON DIOXIDE 22 mmol/L (21-31); CHLORIDE 111 mmol/L (97-110); CREATININE 1.17 mg/dl (0.44-1.00); GLUCOSE 153 mg/dl (70-220); LIPASE 15 U/L (23-300); MAGNESIUM 2.2 mg/dl (1.7-2.5); PHOSPHORUS 4.6 mg/dl (2.5-4.9); POTASSIUM 3.9 mmol/L (3.5-5.1); SODIUM 147 mmol/L (135-144); TOTAL PROTEIN 4.6 g/dl (6.1-8.1)
[2017-07-23 07:21] LABS: TROPONIN-I 0.786 ng/ml (0.00-0.12)
[2017-07-23 07:28] LABS: LACTIC ACID 4.3 mmol/L (0.5-2.0)
[2017-07-23] MEDS: FERROUS SULFATE 60 MG/ML 5ML CUP GTB ×2 (08:40→14:09)
[2017-07-23] MEDS: DEXTROSE 5%-0.45% NACL 1,000 ML IV ×2 (08:40→21:40)
[2017-07-23] MEDS: LACTOBACILLUS RHAMNOSUS CAP GTB (08:40)
[2017-07-23] MEDS: ASPIRIN 81 MG TAB GTB (08:40)
[2017-07-23] MEDS: MULTIVITAMINS 30 ML CUP GTB (08:40)
[2017-07-23] MEDS: LEVETIRACETAM 500 MG (PMX) 100 ML IVPB ×2 (08:40→20:26)
[2017-07-23] MEDS: CEFEPIME 1GM/50 ML (PMX) 50 ML IVPB ×2 (08:44→20:26)
[2017-07-23] MEDS: BALSAM PERU/CASTOR OIL 60 GM TUBE TOP ×2 (08:56→20:27)
[2017-07-23 09:28] LABS: ANISOCYTOSIS 1+ (0-0); BAND NEUTROPHILS #M 9.4 10^3/ul (0.0-0.6); BAND NEUTROPHILS % (M) 30 % (0-4); GIANT THROMBO% (M) 2 % (0-0); LYMPHOCYTES #M 0.9 10^3/ul (0.8-2.9); LYMPHOCYTES % (M) 3 % (15-51); MONOCYTE #M 0.9 10^3/ul (0.3-0.9); MONOCYTES % (M) 3 % (0-11); PLATELET ESTIMATE NORMAL; POIKILOCYTOSIS 3+ (0-0); POLYCHROMASIA 2+ (0-0); SEG NEUT #M 23.2 10^3/ul (1.6-7.5); SEGMENTED NEUTROPHILS (M) % 64 % (39-77)
[2017-07-23 09:42] LABS: PLATELET MORPHOLOGY COMMENT @See below
[2017-07-23] MEDS: CHLORHEXIDINE GLUCONATE 15 ML UD CUP MM ×2 (11:08→21:45)
[2017-07-23] MEDS: MUPIROCIN 2% 22 GM OINT TOP ×2 (11:08→20:27)
[2017-07-23 13:31] LABS: ABNORMAL IP MESSAGE 1; HEMATOCRIT 36.4 % (37.0-47.0); HEMOGLOBIN 11.9 g/dl (12.0-16.0); MEAN CORPUSCULAR HEMOGLOBIN 28.7 pg (29.0-33.0); MEAN CORPUSCULAR HGB CONC 32.7 g/dl (32.0-37.0); MEAN CORPUSCULAR VOLUME 87.9 fl (82.0-101.0); MEAN PLATELET VOLUME 12.1 fl (7.4-10.4); PLATELET COUNT 105 10^3/UL (140-415); RED BLOOD COUNT 4.14 10^6/ul (4.20-5.40); RED CELL DISTRIBUTION WIDTH 16.5 % (11.5-14.5)
[2017-07-23 13:31] LABS: WHITE BLOOD COUNT 33.5 10^3/ul (4.8-10.8)
[2017-07-23 13:38] LABS: POSITIVE DIFF @See below
[2017-07-23 13:39] LABS: ADD MAN DIFF? YES
[2017-07-23 13:43] LABS: AADO2 Arterial 405.6 mmHg (7.0-24.0); Allen Test ACCEPTAB; Arterial Base Excess -3.2 mmol/L (-3.0-3); Arterial Blood Gas Oxygen Sat 98.1 mmHG (95.0-98.0); Arterial COHb 0.7 % (0.0-3.0); Arterial Fraction of Oxyhgb 97.1 % (93.0-99.0); Arterial HCO3 19.9 mmol/L (22.0-26.0); Arterial MetHb 0.3 % (0.0-1.5); Arterial Total Hemglobin 12.9 g/dl (12.0-18.0); MODE VENT - AC; Site Right Brachial
[2017-07-23 13:48] LABS: ALANINE AMINOTRANSFERASE 144 IU/L (13-69); ALBUMIN 1.9 g/dl (3.3-4.9); ALKALINE PHOSPHATASE 149 IU/L (42-121); AMYLASE 32 U/L (11-123); ANION GAP 11 (8-16); ASPARTATE AMINO TRANSFERASE 152 IU/L (15-46); BLOOD UREA NITROGEN 43 mg/dl (7-20); CALCIUM 6.7 mg/dl (8.4-10.2); CARBON DIOXIDE 25 mmol/L (21-31); CHLORIDE 113 mmol/L (97-110); CREATININE 1.31 mg/dl (0.44-1.00); GLUCOSE 162 mg/dl (70-220); MAGNESIUM 2.1 mg/dl (1.7-2.5); PHOSPHORUS 4.3 mg/dl (2.5-4.9); POTASSIUM 3.4 mmol/L (3.5-5.1); SODIUM 146 mmol/L (135-144); TOTAL PROTEIN 4.6 g/dl (6.1-8.1)
[2017-07-23 13:50] LABS: LIPASE < 10 U/L (23-300)
[2017-07-23 13:53] LABS: LACTIC ACID 4.9 mmol/L (0.5-2.0)
[2017-07-23 14:06] LABS: INR 1.46; PT RATIO 1.4
[2017-07-23 14:07] LABS: PARTIAL THROMBOPLASTIN TIME 41.1 Sec (25.0-35.0)
[2017-07-23 14:15] LABS: TROPONIN-I 0.615 ng/ml (0.00-0.12)
[2017-07-23] MEDS: INSULIN HUMAN REGULAR 100 UNIT in SOD CHLORIDE 0.9% 99 ML IV (14:18)
[2017-07-23 14:40] LABS: ANISOCYTOSIS 1+ (0-0); BAND NEUTROPHILS % (M) 42 % (0-4); LYMPHOCYTES % (M) 6 % (15-51); MONOCYTE #M 0.3 10^3/ul (0.3-0.9); MONOCYTES % (M) 1 % (0-11); PLATELET ESTIMATE DECREASED; POIKILOCYTOSIS 3+ (0-0); POLYCHROMASIA 3+ (0-0); SEG NEUT #M 21.8 10^3/ul (1.6-7.5); SEGMENTED NEUTROPHILS (M) % 51 % (39-77); SMUDGE%M 4 % (0-0)
[2017-07-23 18:18] LABS: AADO2 Arterial 408.4 mmHg (7.0-24.0); Arterial Base Excess -3.6 mmol/L (-3.0-3); Arterial Blood Gas Oxygen Sat 97.6 mmHG (95.0-98.0); Arterial COHb 0.6 % (0.0-3.0); Arterial Fraction of Oxyhgb 96.9 % (93.0-99.0); Arterial MetHb 0.1 % (0.0-1.5); Arterial Total Hemglobin 12.4 g/dl (12.0-18.0); Arterial pCO2 27.7 mmhg (35-45); MODE VENT - AC; Site LB
[2017-07-23 18:36] LABS: ADD MAN DIFF? NO
[2017-07-23 18:46] LABS: WHITE BLOOD COUNT 33.2 10^3/ul (4.8-10.8)
[2017-07-23 18:46] LABS: ABNORMAL IP MESSAGE 1; HEMATOCRIT 34.6 % (37.0-47.0); HEMOGLOBIN 11.4 g/dl (12.0-16.0); MEAN CORPUSCULAR HEMOGLOBIN 28.7 pg (29.0-33.0); MEAN CORPUSCULAR HGB CONC 32.9 g/dl (32.0-37.0); MEAN CORPUSCULAR VOLUME 87.2 fl (82.0-101.0); PLATELET COUNT 115 10^3/UL (140-415); RED BLOOD COUNT 3.97 10^6/ul (4.20-5.40); RED CELL DISTRIBUTION WIDTH 16.8 % (11.5-14.5)
[2017-07-23 18:56] LABS: POSITIVE DIFF @See below
[2017-07-23 19:08] LABS: ALANINE AMINOTRANSFERASE 140 IU/L (13-69); ALBUMIN 1.9 g/dl (3.3-4.9); ALBUMIN/GLOBULIN RATIO 0.67; ALKALINE PHOSPHATASE 152 IU/L (42-121); AMYLASE 32 U/L (11-123); ANION GAP 14 (8-16); ASPARTATE AMINO TRANSFERASE 142 IU/L (15-46); BLOOD UREA NITROGEN 45 mg/dl (7-20); CALCIUM 6.7 mg/dl (8.4-10.2); CARBON DIOXIDE 24 mmol/L (21-31); CHLORIDE 111 mmol/L (97-110); CREATININE 1.44 mg/dl (0.44-1.00); GLUCOSE 147 mg/dl (70-220); MAGNESIUM 2.1 mg/dl (1.7-2.5); PHOSPHORUS 4.5 mg/dl (2.5-4.9); POTASSIUM 3.3 mmol/L (3.5-5.1); SODIUM 146 mmol/L (135-144); TOTAL PROTEIN 4.7 g/dl (6.1-8.1)
[2017-07-23 19:10] LABS: LIPASE < 10 U/L (23-300)
[2017-07-23 19:14] LABS: INR 1.63; PROTIME 19.7 Sec (11.9-14.9); PT RATIO 1.5
[2017-07-23 19:15] LABS: PARTIAL THROMBOPLASTIN TIME 44.3 Sec (25.0-35.0)
[2017-07-23 19:26] LABS: LACTIC ACID 4.3 mmol/L (0.5-2.0)
[2017-07-23 20:28] LABS: BAND NEUTROPHILS #M 9.9 10^3/ul (0.0-0.6); BAND NEUTROPHILS % (M) 30 % (0-4); BURR CELLS 2+ (0-0); LYMPHOCYTES #M 0.3 10^3/ul (0.8-2.9); LYMPHOCYTES % (M) 1 % (15-51); METAMYELOCYTES #M 0.3 10^3/ul (0.0-0.0); METAMYELOCYTES %M 1 % (0-0); MONOCYTE #M 0.3 10^3/ul (0.3-0.9); MONOCYTES % (M) 1 % (0-11); PLATELET ESTIMATE NORMAL; POIKILOCYTOSIS 2+ (0-0); SEG NEUT #M 25.5 10^3/ul (1.6-7.5); SEGMENTED NEUTROPHILS (M) % 67 % (39-77)
[2017-07-23] MEDS: MAGNESIUM HYDROXIDE 30ML CUP GTB (21:42)
[2017-07-23] MEDS: VANCOMYCIN 500MG/NS (PMX) 100 ML IVPB (21:44)
[2017-07-24] MEDS: ARTIFICIAL TEARS 15 ML OPH BOTH EYES ×2 (00:26→05:51)
[2017-07-24] MEDS: ACCU-CHEK XX ×11 (00:26→10:28)
[2017-07-24] MEDS: OCULAR LUBRICANT 3.5 GM OPH OINT BOTH EYES ×2 (00:26→05:51)
[2017-07-24 05:16] LABS: ABNORMAL IP MESSAGE 1; HEMATOCRIT 32.4 % (37.0-47.0); HEMOGLOBIN 10.4 g/dl (12.0-16.0); MEAN CORPUSCULAR HEMOGLOBIN 28.3 pg (29.0-33.0); MEAN CORPUSCULAR HGB CONC 32.1 g/dl (32.0-37.0); MEAN CORPUSCULAR VOLUME 88.3 fl (82.0-101.0); MEAN PLATELET VOLUME 13.1 fl (7.4-10.4); PLATELET COUNT 117 10^3/UL (140-415); RED BLOOD COUNT 3.67 10^6/ul (4.20-5.40); RED CELL DISTRIBUTION WIDTH 17.1 % (11.5-14.5)
[2017-07-24 05:16] LABS: WHITE BLOOD COUNT 31.6 10^3/ul (4.8-10.8)
[2017-07-24 05:35] LABS: ADD MAN DIFF? YES; POSITIVE DIFF @See below
[2017-07-24 05:35] LABS: LACTIC ACID 3.5 mmol/L (0.5-2.0)
[2017-07-24 05:40] LABS: ANION GAP 15 (8-16); BLOOD UREA NITROGEN 47 mg/dl (7-20); CALCIUM 6.4 mg/dl (8.4-10.2); CARBON DIOXIDE 22 mmol/L (21-31); CHLORIDE 106 mmol/L (97-110); CREATININE 1.57 mg/dl (0.44-1.00); GLUCOSE 197 mg/dl (70-220); POTASSIUM 3.3 mmol/L (3.5-5.1); SODIUM 140 mmol/L (135-144)
[2017-07-24 05:42] LABS: MAGNESIUM 1.9 mg/dl (1.7-2.5)
[2017-07-24 05:51] LABS: TROPONIN-I 0.525 ng/ml (0.00-0.12)
[2017-07-24] MEDS: PANTOPRAZOLE 40 MG INJ IV ×2 (05:51→17:39)
[2017-07-24 08:03] LABS: AADO2 Arterial 355.8 mmHg (7.0-24.0); Allen Test ACCEPTAB; Arterial Base Excess -2.4 mmol/L (-3.0-3); Arterial Blood Gas Oxygen Sat 99.2 mmHG (95.0-98.0); Arterial COHb 0.6 % (0.0-3.0); Arterial Fraction of Oxyhgb 98.5 % (93.0-99.0); Arterial HCO3 20.8 mmol/L (22.0-26.0); Arterial MetHb 0.1 % (0.0-1.5); Arterial Total Hemglobin 11.9 g/dl (12.0-18.0); MODE VENT - AC; Site Right Radial
[2017-07-24 08:11] LABS: BAND NEUTROPHILS % (M) 35 % (0-4); LYMPHOCYTES #M 2.5 10^3/ul (0.8-2.9); LYMPHOCYTES % (M) 8 % (15-51); METAMYELOCYTES #M 0.6 10^3/ul (0.0-0.0); METAMYELOCYTES %M 2 % (0-0); MONOCYTE #M 0.3 10^3/ul (0.3-0.9); MONOCYTES % (M) 1 % (0-11); PLATELET ESTIMATE DECREASED; POIKILOCYTOSIS 3+ (0-0); SEG NEUT #M 20.5 10^3/ul (1.6-7.5); SEGMENTED NEUTROPHILS (M) % 54 % (39-77); SMUDGE%M 2 % (0-0)
[2017-07-24] MEDS: LEVETIRACETAM 500 MG (PMX) 100 ML IVPB ×2 (08:53→21:27)
[2017-07-24] MEDS: POTASSIUM CHLORIDE 50 ML IVPB ×3 (09:23→13:45)
[2017-07-24] MEDS: BALSAM PERU/CASTOR OIL 60 GM TUBE TOP ×2 (09:23→21:28)
[2017-07-24] MEDS: CEFEPIME 1GM/50 ML (PMX) 50 ML IVPB (09:23)
[2017-07-24] MEDS: MUPIROCIN 2% 22 GM OINT TOP ×2 (09:23→21:28)
[2017-07-24] MEDS: CHLORHEXIDINE GLUCONATE 15 ML UD CUP MM ×2 (10:17→21:27)
[2017-07-24] MEDS: MAGNESIUM SULFATE 1 GM/D5W 100 ML IVPB (10:18)
[2017-07-24] MEDS: DEXTROSE 5%-0.45% NACL 1,000 ML IV ×2 (11:10→12:42)
[2017-07-24 15:21] LABS: CREATINE KINASE 100 IU/L (23-200)
[2017-07-24 15:21] LABS: URIC ACID 5.9 mg/dl (3.1-7.9)
[2017-07-24 15:44] LABS: SODIUM,URINE RANDOM 33 mmol/L (30-90)
[2017-07-24] MEDS: NYSTATIN 30 GM POWDER BTL TOP ×2 (17:00→21:29)
[2017-07-24] MEDS: MAGNESIUM HYDROXIDE 30ML CUP GTB (21:27)
[2017-07-25] MEDS: DEXTROSE 5%-0.45% NACL 1,000 ML IV ×2 (01:35→14:23)
[2017-07-25 05:42] LABS: ABNORMAL IP MESSAGE 1; HEMATOCRIT 27.4 % (37.0-47.0); HEMOGLOBIN 9.1 g/dl (12.0-16.0); MEAN CORPUSCULAR HGB CONC 33.2 g/dl (32.0-37.0); MEAN CORPUSCULAR VOLUME 87.3 fl (82.0-101.0); MEAN PLATELET VOLUME 11.8 fl (7.4-10.4); PLATELET COUNT 102 10^3/UL (140-415); RED BLOOD COUNT 3.14 10^6/ul (4.20-5.40); RED CELL DISTRIBUTION WIDTH 17.2 % (11.5-14.5)
[2017-07-25 05:42] LABS: WHITE BLOOD COUNT 25.6 10^3/ul (4.8-10.8)
[2017-07-25 06:05] LABS: ANION GAP 12 (8-16); BLOOD UREA NITROGEN 48 mg/dl (7-20); CALCIUM 6.7 mg/dl (8.4-10.2); CARBON DIOXIDE 21 mmol/L (21-31); CHLORIDE 110 mmol/L (97-110); GLUCOSE 191 mg/dl (70-220); MAGNESIUM 2.1 mg/dl (1.7-2.5); PHOSPHORUS 4.3 mg/dl (2.5-4.9); POTASSIUM 3.4 mmol/L (3.5-5.1); SODIUM 140 mmol/L (135-144)
[2017-07-25 06:11] LABS: VANCOMYCIN,RANDOM 11.1 ug/ml
[2017-07-25] MEDS: PANTOPRAZOLE 40 MG INJ IV ×2 (06:23→17:51)
[2017-07-25 06:25] LABS: ADD MAN DIFF? YES; POSITIVE DIFF @See below
[2017-07-25 07:36] LABS: BAND NEUTROPHILS % (M) 8 % (0-4); BURR CELLS 1+ (0-0); EOSINOPHILS % (M) 1 % (0-7); LYMPHOCYTES #M 2.5 10^3/ul (0.8-2.9); LYMPHOCYTES % (M) 10 % (15-51); MONOCYTE #M 0.2 10^3/ul (0.3-0.9); MONOCYTES % (M) 1 % (0-11); PLATELET ESTIMATE DECREASED; POIKILOCYTOSIS 1+ (0-0); POLYCHROMASIA 1+ (0-0); SEG NEUT #M 21.2 10^3/ul (1.6-7.5); SEGMENTED NEUTROPHILS (M) % 81 % (39-77); SMUDGE%M 4 % (0-0)
[2017-07-25] MEDS: LEVETIRACETAM 500 MG (PMX) 100 ML IVPB ×2 (09:00→21:03)
[2017-07-25] MEDS: CEFEPIME 1GM/50 ML (PMX) 50 ML IVPB (09:00)
[2017-07-25] MEDS: MUPIROCIN 2% 22 GM OINT TOP ×2 (09:00→21:03)
[2017-07-25] MEDS: BALSAM PERU/CASTOR OIL 60 GM TUBE TOP ×2 (09:00→21:03)
[2017-07-25] MEDS: CHLORHEXIDINE GLUCONATE 15 ML UD CUP MM ×2 (09:00→21:03)
[2017-07-25] MEDS: NYSTATIN 30 GM POWDER BTL TOP ×2 (09:00→21:03)
[2017-07-25 10:56] LABS: AADO2 Arterial 202.2 mmHg (7.0-24.0); Arterial Base Excess -2.5 mmol/L (-3.0-3); MODE VENT - AC; Site LB
[2017-07-25 12:59] LABS: AADO2 Arterial 194.4 mmHg (7.0-24.0); Arterial HCO3 18.4 mmol/L (22.0-26.0); Arterial MetHb 0 % (0.0-1.5); Arterial Total Hemglobin 9.1 g/dl (12.0-18.0); MODE VENT - AC; Site LB
[2017-07-25] MEDS: VANCOMYCIN 500MG/NS (PMX) 100 ML IVPB (14:03)
[2017-07-25] MEDS: POTASSIUM CHLORIDE 100 ML IVPB ×2 (14:23→16:35)
[2017-07-25] MEDS: CEFTRIAXONE 1 GM/50 ML (PMX) 50 ML IVPB (16:01)
[2017-07-25] MEDS: MAGNESIUM HYDROXIDE 30ML CUP GTB (21:04)
[2017-07-26 05:21] LABS: WHITE BLOOD COUNT 18.3 10^3/ul (4.8-10.8)
[2017-07-26 05:21] LABS: ABNORMAL IP MESSAGE 1; HEMATOCRIT 28.1 % (37.0-47.0); HEMOGLOBIN 8.9 g/dl (12.0-16.0); MEAN CORPUSCULAR HEMOGLOBIN 28.4 pg (29.0-33.0); MEAN CORPUSCULAR HGB CONC 31.7 g/dl (32.0-37.0); MEAN CORPUSCULAR VOLUME 89.8 fl (82.0-101.0); MEAN PLATELET VOLUME 12.9 fl (7.4-10.4); PLATELET COUNT 88 10^3/UL (140-415); RED BLOOD COUNT 3.13 10^6/ul (4.20-5.40); RED CELL DISTRIBUTION WIDTH 17.5 % (11.5-14.5)
[2017-07-26] MEDS: DEXTROSE 5%-0.45% NACL 1,000 ML IV ×2 (05:26→19:31)
[2017-07-26 05:38] LABS: ANION GAP 11 (8-16); BLOOD UREA NITROGEN 46 mg/dl (7-20); CALCIUM 7.3 mg/dl (8.4-10.2); CARBON DIOXIDE 22 mmol/L (21-31); CHLORIDE 113 mmol/L (97-110); GLUCOSE 121 mg/dl (70-220); MAGNESIUM 2.1 mg/dl (1.7-2.5); POTASSIUM 3.3 mmol/L (3.5-5.1); SODIUM 143 mmol/L (135-144)
[2017-07-26 05:51] LABS: ADD MAN DIFF? YES; POSITIVE DIFF @See below
[2017-07-26] MEDS: PANTOPRAZOLE 40 MG INJ IV ×2 (06:30→18:15)
[2017-07-26] MEDS: POTASSIUM CHLORIDE 50 ML IVPB ×3 (06:35→09:43)
[2017-07-26 08:05] LABS: BAND NEUTROPHILS #M 0.1 10^3/ul (0.0-0.6); BAND NEUTROPHILS % (M) 1 % (0-4); BURR CELLS 2+ (0-0); EOSINOPHILS % (M) 1 % (0-7); LYMPHOCYTES % (M) 11 % (15-51); MONOCYTE #M 0.5 10^3/ul (0.3-0.9); MONOCYTES % (M) 3 % (0-11); PLATELET ESTIMATE DECREASED; POIKILOCYTOSIS 2+ (0-0); SEG NEUT #M 15.4 10^3/ul (1.6-7.5); SEGMENTED NEUTROPHILS (M) % 84 % (39-77); SMUDGE%M 9 % (0-0)
[2017-07-26] MEDS: NYSTATIN 30 GM POWDER BTL TOP ×2 (08:25→21:59)
[2017-07-26] MEDS: LEVETIRACETAM 500 MG (PMX) 100 ML IVPB ×2 (08:26→21:58)
[2017-07-26] MEDS: MUPIROCIN 2% 22 GM OINT TOP ×2 (08:26→21:58)
[2017-07-26] MEDS: BALSAM PERU/CASTOR OIL 60 GM TUBE TOP ×2 (09:22→21:58)
[2017-07-26] MEDS: CHLORHEXIDINE GLUCONATE 15 ML UD CUP MM ×2 (09:23→21:58)
[2017-07-26] MEDS: POTASSIUM CHLORIDE 100 ML IVPB ×2 (09:30→11:30)
[2017-07-26] MEDS: CEFTRIAXONE 1 GM/50 ML (PMX) 50 ML IVPB (16:23)
[2017-07-26] MEDS: MAGNESIUM HYDROXIDE 30ML CUP GTB ×3 (21:58→22:00)
[2017-07-27] MEDS: DEXTROSE 5%-0.45% NACL 1,000 ML IV ×2 (01:41→23:16)
[2017-07-27 05:16] LABS: ADD MAN DIFF? NO
[2017-07-27 05:22] LABS: BASOPHILS % 0.2 % (0.0-2.0); EOSINOPHILS # 0.1 10^3/ul (0.0-0.5); HEMATOCRIT 28.1 % (37.0-47.0); HEMOGLOBIN 9.2 g/dl (12.0-16.0); LYMPHOCYTES # 1.4 10^3/ul (0.8-2.9); LYMPHOCYTES % 9.9 % (15.0-51.0); MEAN CORPUSCULAR HEMOGLOBIN 29.3 pg (29.0-33.0); MEAN CORPUSCULAR HGB CONC 32.7 g/dl (32.0-37.0); MEAN CORPUSCULAR VOLUME 89.5 fl (82.0-101.0); MEAN PLATELET VOLUME 12.8 fl (7.4-10.4); MONOCYTE # 0.6 10^3/ul (0.3-0.9); MONOCYTES % 4.6 % (0.0-11.0); NEUTROPHIL # 11.3 10^3/ul (1.6-7.5); NEUTROPHILS % 83.6 % (39.0-77.0); PLATELET COUNT 104 10^3/UL (140-415); RED BLOOD COUNT 3.14 10^6/ul (4.20-5.40); RED CELL DISTRIBUTION WIDTH 17.5 % (11.5-14.5)
[2017-07-27 05:22] LABS: WHITE BLOOD COUNT 13.6 10^3/ul (4.8-10.8)
[2017-07-27] MEDS: PANTOPRAZOLE 40 MG INJ IV ×2 (05:35→17:21)
[2017-07-27 05:58] LABS: ANION GAP 7 (8-16); BLOOD UREA NITROGEN 43 mg/dl (7-20); CALCIUM 7.8 mg/dl (8.4-10.2); CARBON DIOXIDE 24 mmol/L (21-31); CHLORIDE 117 mmol/L (97-110); CREATININE 1.34 mg/dl (0.44-1.00); GLUCOSE 117 mg/dl (70-220); POTASSIUM 3.6 mmol/L (3.5-5.1); SODIUM 144 mmol/L (135-144)
[2017-07-27] MEDS: LEVETIRACETAM 500 MG (PMX) 100 ML IVPB ×2 (09:03→20:44)
[2017-07-27] MEDS: BALSAM PERU/CASTOR OIL 60 GM TUBE TOP ×2 (09:05→20:47)
[2017-07-27] MEDS: NYSTATIN 30 GM POWDER BTL TOP ×2 (09:05→20:47)
[2017-07-27] MEDS: MUPIROCIN 2% 22 GM OINT TOP ×2 (09:05→20:47)
[2017-07-27] MEDS: CHLORHEXIDINE GLUCONATE 15 ML UD CUP MM ×2 (10:09→22:29)
[2017-07-27] MEDS: POTASSIUM CHLORIDE 50 ML IVPB (12:34)
[2017-07-27] MEDS: AMIODARONE 150MG/D5W BOLUS 100 ML IV (12:36)
[2017-07-27] MEDS: AMIODARONE 900 MG in DEXTROSE 5% 482 ML IV (12:52)
[2017-07-27] MEDS: METOPROLOL 25 MG TAB GTB (21:14)
[2017-07-27] MEDS: MAGNESIUM HYDROXIDE 30ML CUP GTB (22:00)
[2017-07-28 06:06] LABS: ADD MAN DIFF? NO
[2017-07-28 06:08] LABS: WHITE BLOOD COUNT 11.7 10^3/ul (4.8-10.8)
[2017-07-28 06:08] LABS: BASOPHILS % 0.1 % (0.0-2.0); EOSINOPHILS # 0.2 10^3/ul (0.0-0.5); HEMATOCRIT 27.7 % (37.0-47.0); LYMPHOCYTES # 1.7 10^3/ul (0.8-2.9); LYMPHOCYTES % 14.8 % (15.0-51.0); MEAN CORPUSCULAR HEMOGLOBIN 28.9 pg (29.0-33.0); MEAN CORPUSCULAR HGB CONC 32.5 g/dl (32.0-37.0); MEAN CORPUSCULAR VOLUME 89.1 fl (82.0-101.0); MEAN PLATELET VOLUME 12.4 fl (7.4-10.4); MONOCYTE # 0.9 10^3/ul (0.3-0.9); MONOCYTES % 7.3 % (0.0-11.0); NEUTROPHIL # 8.8 10^3/ul (1.6-7.5); NEUTROPHILS % 74.6 % (39.0-77.0); PLATELET COUNT 146 10^3/UL (140-415); RED BLOOD COUNT 3.11 10^6/ul (4.20-5.40); RED CELL DISTRIBUTION WIDTH 17.4 % (11.5-14.5)
[2017-07-28] MEDS: PANTOPRAZOLE 40 MG INJ IV ×2 (06:42→17:15)
[2017-07-28 06:53] LABS: ANION GAP 10 (8-16); BLOOD UREA NITROGEN 38 mg/dl (7-20); CALCIUM 7.9 mg/dl (8.4-10.2); CARBON DIOXIDE 23 mmol/L (21-31); CHLORIDE 117 mmol/L (97-110); CREATININE 1.33 mg/dl (0.44-1.00); GLUCOSE 137 mg/dl (70-220); POTASSIUM 3.6 mmol/L (3.5-5.1); SODIUM 146 mmol/L (135-144)
[2017-07-28] MEDS ORDERED: AMIODARONE 200 MG TAB NGT (07:00)
[2017-07-28] MEDS: METOPROLOL 25 MG TAB GTB ×2 (09:00→20:44)
[2017-07-28] MEDS: BALSAM PERU/CASTOR OIL 60 GM TUBE TOP ×2 (09:11→20:58)
[2017-07-28] MEDS: NYSTATIN 30 GM POWDER BTL TOP ×2 (09:11→21:08)
[2017-07-28] MEDS: MUPIROCIN 2% 22 GM OINT TOP ×2 (09:12→20:55)
[2017-07-28] MEDS: CHLORHEXIDINE GLUCONATE 15 ML UD CUP MM ×2 (09:14→21:39)
[2017-07-28] MEDS: LEVETIRACETAM 500 MG (PMX) 100 ML IVPB ×2 (09:14→20:31)
[2017-07-28] MEDS: BACITRACIN/POLYMYXIN 28.35 GM OINT TOP ×2 (12:25→20:57)
[2017-07-28] MEDS: AMIODARONE 900 MG in DEXTROSE 5% 482 ML IV (12:25)
[2017-07-28] MEDS: DEXTROSE 5%-0.45% NACL 1,000 ML IV (12:26)
[2017-07-28] MEDS: POTASSIUM CHLORIDE 50 ML IVPB ×2 (14:43→17:15)
[2017-07-28] MEDS: MAGNESIUM SULFATE 1 GM/D5W 100 ML IVPB (14:44)
[2017-07-28] MEDS: MAGNESIUM HYDROXIDE 30ML CUP GTB (21:35)
[2017-07-29] MEDS: PANTOPRAZOLE 40 MG INJ IV ×2 (06:21→17:28)
[2017-07-29 06:51] LABS: ADD MAN DIFF? NO
[2017-07-29 06:56] LABS: BASOPHILS % 0.1 % (0.0-2.0); EOSINOPHILS # 0.4 10^3/ul (0.0-0.5); HEMATOCRIT 30.4 % (37.0-47.0); HEMOGLOBIN 9.8 g/dl (12.0-16.0); LYMPHOCYTES # 2.1 10^3/ul (0.8-2.9); LYMPHOCYTES % 14.9 % (15.0-51.0); MEAN CORPUSCULAR HEMOGLOBIN 29.3 pg (29.0-33.0); MEAN CORPUSCULAR HGB CONC 32.2 g/dl (32.0-37.0); MEAN CORPUSCULAR VOLUME 90.7 fl (82.0-101.0); MEAN PLATELET VOLUME 12.1 fl (7.4-10.4); MONOCYTE # 1.2 10^3/ul (0.3-0.9); MONOCYTES % 8.9 % (0.0-11.0); NEUTROPHIL # 9.9 10^3/ul (1.6-7.5); NEUTROPHILS % 71.3 % (39.0-77.0); PLATELET COUNT 155 10^3/UL (140-415); RED BLOOD COUNT 3.35 10^6/ul (4.20-5.40); RED CELL DISTRIBUTION WIDTH 17.6 % (11.5-14.5)
[2017-07-29 06:56] LABS: WHITE BLOOD COUNT 13.9 10^3/ul (4.8-10.8)
[2017-07-29 07:24] LABS: ANION GAP 8 (8-16); BLOOD UREA NITROGEN 35 mg/dl (7-20); CARBON DIOXIDE 26 mmol/L (21-31); CHLORIDE 115 mmol/L (97-110); CREATININE 1.23 mg/dl (0.44-1.00); GLUCOSE 159 mg/dl (70-220); MAGNESIUM 2.1 mg/dl (1.7-2.5); PHOSPHORUS 2.5 mg/dl (2.5-4.9); POTASSIUM 3.6 mmol/L (3.5-5.1); SODIUM 145 mmol/L (135-144)
[2017-07-29] MEDS: LEVETIRACETAM 500 MG (PMX) 100 ML IVPB ×2 (07:51→20:34)
[2017-07-29] MEDS: METOPROLOL 25 MG TAB GTB ×2 (07:52→20:42)
[2017-07-29] MEDS: BALSAM PERU/CASTOR OIL 60 GM TUBE TOP ×2 (07:53→20:34)
[2017-07-29] MEDS: NYSTATIN 30 GM POWDER BTL TOP ×2 (07:53→20:34)
[2017-07-29] MEDS: MUPIROCIN 2% 22 GM OINT TOP ×2 (07:53→20:34)
[2017-07-29] MEDS: BACITRACIN/POLYMYXIN 28.35 GM OINT TOP ×2 (07:54→20:34)
[2017-07-29] MEDS: CHLORHEXIDINE GLUCONATE 15 ML UD CUP MM ×2 (10:12→21:49)
[2017-07-29] MEDS: DEXTROSE 5%-0.45% NACL 1,000 ML IV (10:44)
[2017-07-29] MEDS: DEXTROSE 5% 1,000 ML IV (15:33)
[2017-07-29] MEDS: METOCLOPRAMIDE 10 MG INJ IV (17:28)
[2017-07-29] MEDS: AMIODARONE 900 MG in DEXTROSE 5% 482 ML IV (20:11)
[2017-07-29] MEDS: MAGNESIUM HYDROXIDE 30ML CUP GTB (21:49)
[2017-07-30] MEDS: METOCLOPRAMIDE 10 MG INJ IV ×4 (00:10→17:22)
[2017-07-30] MEDS: PANTOPRAZOLE 40 MG INJ IV ×2 (05:54→17:22)
[2017-07-30] MEDS: METOPROLOL 25 MG TAB GTB ×2 (09:00→21:00)
[2017-07-30] MEDS: LEVETIRACETAM 500 MG (PMX) 100 ML IVPB ×2 (09:07→21:45)
[2017-07-30] MEDS: NYSTATIN 30 GM POWDER BTL TOP ×2 (09:09→21:45)
[2017-07-30] MEDS: BACITRACIN/POLYMYXIN 28.35 GM OINT TOP ×2 (09:09→21:46)
[2017-07-30] MEDS: MUPIROCIN 2% 22 GM OINT TOP ×2 (09:10→21:45)
[2017-07-30] MEDS: BALSAM PERU/CASTOR OIL 60 GM TUBE TOP ×2 (09:10→21:46)
[2017-07-30] MEDS: CHLORHEXIDINE GLUCONATE 15 ML UD CUP MM ×2 (09:10→21:46)
[2017-07-30] MEDS: DEXTROSE 5% 1,000 ML IV (10:34)
[2017-07-30] MEDS: MAGNESIUM HYDROXIDE 30ML CUP GTB (21:46)
[2017-07-31] MEDS: METOCLOPRAMIDE 10 MG INJ IV ×2 (00:17→05:54)
[2017-07-31] MEDS: PANTOPRAZOLE 40 MG INJ IV (05:54)
[2017-07-31] MEDS: DEXTROSE 5% 1,000 ML IV (07:30)
[2017-07-31] MEDS: MUPIROCIN 2% 22 GM OINT TOP (08:14)
[2017-07-31] MEDS: LEVETIRACETAM 500 MG (PMX) 100 ML IVPB (08:14)
[2017-07-31] MEDS: BACITRACIN/POLYMYXIN 28.35 GM OINT TOP (08:14)
[2017-07-31] MEDS: NYSTATIN 30 GM POWDER BTL TOP (08:14)
[2017-07-31] MEDS: BALSAM PERU/CASTOR OIL 60 GM TUBE TOP (08:14)
[2017-07-31] MEDS: METOPROLOL 25 MG TAB GTB (08:15)
[2017-07-31] MEDS: CHLORHEXIDINE GLUCONATE 15 ML UD CUP MM (10:05)
[2017-07-31] MEDS: morphine (DRIP) 100 MG/100 ML 100 ML IV (12:42)
== END 2017-07-31 14:40 | disposition expired | DRG 871 ==
LOC: ICU 21:48 → E/R 19:46
PROC: 5A1945Z Respiratory Ventilation, 24-96 Consecutive Hours (ICD-10-PCS; principal; 2017-07-21)
PROC: 6A4Z0ZZ Hypothermia, Single (ICD-10-PCS; 2017-07-21)
PROC: 06HN33Z Insertion of Infusion Device into Left Femoral Vein, Percutaneous Approach (ICD-10-PCS; 2017-07-21)
DX: A41.9 Sepsis, unspecified organism (principal); R65.21 Severe sepsis with septic shock; I21.9 Acute myocardial infarction, unspecified; G93.40 Encephalopathy, unspecified; R40.20 Unspecified coma; N39.0 Urinary tract infection, site not specified; N17.9 Acute kidney failure, unspecified; I47.2 Ventricular tachycardia; Z99.11 Dependence on respirator [ventilator] status; I13.0 Hypertensive heart and chronic kidney disease with heart failure and stage 1 through stage 4 chronic kidney disease, or unspecified chronic kidney disease; J96.11 Chronic respiratory failure with hypoxia; E87.2 Acidosis; I42.9 Cardiomyopathy, unspecified; G93.1 Anoxic brain damage, not elsewhere classified; L03.311 Cellulitis of abdominal wall; I46.9 Cardiac arrest, cause unspecified; B96.89 Other specified bacterial agents as the cause of diseases classified elsewhere; Z87.19 Personal history of other diseases of the digestive system; E11.22 Type 2 diabetes mellitus with diabetic chronic kidney disease; N18.9 Chronic kidney disease, unspecified; I25.10 Atherosclerotic heart disease of native coronary artery without angina pectoris; G40.909 Epilepsy, unspecified, not intractable, without status epilepticus; Z93.0 Tracheostomy status; R40.2432 Glasgow coma scale score 3-8, at arrival to emergency department; Z87.311 Personal history of (healed) other pathological fracture; E87.6 Hypokalemia; D69.6 Thrombocytopenia, unspecified; G93.9 Disorder of brain, unspecified; K94.29 Other complications of gastrostomy; I48.0 Paroxysmal atrial fibrillation; R13.10 Dysphagia, unspecified; Z22.322 Carrier or suspected carrier of Methicillin resistant Staphylococcus aureus; Z51.5 Encounter for palliative care
CPT/HCPCS: 36415; 36600; 70450; 71045; 76775; 76937; 80048; 80053; 80202; 81001; 82150; 82310; 82550; 82553; 82803; 82962; 83605; 83690; 83735; 83880; 84100; 84300; 84484; 84560; 85025; 85378; 85384; 85610; 85730; 87040; 87070; 87075; 87081; 87086; 89190; 92950; 93005; 93306; 94002; 94003; 95819; 96365; 96375; 99291-25